=== PATIENT | female | born 1965 | race Caucasian/White ===

== ENCOUNTER 2016-08-16 15:09 | Outpatient (CLI) | payer OTHER | END 2016-08-16 23:00 | LOC: LAB SRH 15:09 | DX: N91.2 Amenorrhea, unspecified (principal) | CPT/HCPCS: 90074; 90197 ==

== ENCOUNTER 2016-12-26 15:13 | Outpatient (CLI) | payer OTHER ==
--- NOTE | 2016-12-26 16:34 | DIAGNOSTIC IMAGING REPORT ---
PROCEDURE: US COMPLETE PELVIC INDICATION: Pelvic pain. Possible . TECHNIQUE: Transabdominal scans. COMPARISON: None. FINDINGS: Study is partially limited due to body habitus and patient's inability to fully cooperate. Uterus is of normal size (7.8 x 3.5 x 4.6 cm). Endometrium is somewhat difficult to visualize and evaluate. However, there is no evidence of an intrauterine gestational sac. Ovaries are not visualized, but no adnexal masses are identified. IMPRESSION: 1. Negative pelvic ultrasound. 2. Findings called to Dr. Austin Sarabia.
== END 2016-12-26 23:00 ==
LOC: US SRH 15:13
DX: Z32.02 Encounter for pregnancy test, result negative (principal)